=== PATIENT | female | born 1930 | race Caucasian/White ===

== ENCOUNTER → 2016-12-06 | Outpatient (CLI) | payer OTHER | LOC: BHLMT 14:00 | PROVIDERS: ATTEND Internal Medicine Interventional Cardiology | DX: I48.91 Unspecified atrial fibrillation (principal); I10 Essential (primary) hypertension; I42.9 Cardiomyopathy, unspecified | CPT/HCPCS: 93306-PO ==

== ENCOUNTER → 2017-12-12 | Outpatient (CLI) | payer OTHER | LOC: BHLMT 13:15 | PROVIDERS: ATTEND Internal Medicine Interventional Cardiology | DX: I48.91 Unspecified atrial fibrillation (principal) | CPT/HCPCS: 93306-PO ==

== ENCOUNTER → 2018-10-16 | Outpatient (CLI) | payer OTHER | LOC: BHLMT 14:00 | PROVIDERS: ATTEND Internal Medicine Cardiovascular Disease | DX: I48.91 Unspecified atrial fibrillation (principal); I50.9 Heart failure, unspecified | CPT/HCPCS: 93306-PO ==

== ENCOUNTER 2018-11-10 08:04 | Day surgery (SDC) | payer OTHER ==
[2018-11-10] MEDS ORDERED: diphenhydrAMINE 25 MG CAP PO ONE ×2 (08:06→08:19)
[2018-11-10] MEDS ORDERED: FAMOTIDINE 20 MG TAB PO ONE (08:06)
[2018-11-10] MEDS ORDERED: DIAZEPAM 5 MG TAB PO ONE (08:06)
[2018-11-10] MEDS ORDERED: NS 1,000 ML IV ONE (08:06)
[2018-11-10] MEDS ORDERED: ASPIRIN EC 325 MG TAB PO ONE ×2 (08:06→08:20)
[2018-11-10] MEDS ORDERED: FAMOTIDINE 20 MG TAB ONE (08:19)
[2018-11-10] MEDS ORDERED: DIAZEPAM 5 MG TAB ONE (08:20)
[2018-11-10 08:40] LABS: PLATELET COUNT 225 10^3/uL (150-400)
[2018-11-10 08:50] LABS: INR 1.3 (0.83-1.16); PROTIME(PATIENT) 16.4 SEC (12.0-15.0)
[2018-11-10] MEDS ORDERED: LIDOCAINE 1% 300 MG/30 ML SDV ONE (08:58)
[2018-11-10] MEDS ORDERED: MIDAZOLAM 2 MG/2 ML VIAL ONE ×3 (08:59→11:06)
[2018-11-10] MEDS ORDERED: IOHEXOL 350mgI/ML (OMNIPAQUE) 150 ML BTL IV ONE (08:59)
[2018-11-10] MEDS ORDERED: fentaNYL 100 MCG/2 ML INJ ONE ×2 (08:59→10:46)
--- NOTE | 2018-11-10 09:00 | CPEKG ---
Test Reason : OPEN Blood Pressure : / mmHG Vent. Rate : 101 BPM Atrial Rate : 101 BPM P-R Int : 165 ms QRS Dur : 173 ms QT Int : 413 ms P-R-T Axes : 094 -80 093 degrees QTc Int : 536 ms A sensed Ventricular-paced rhythm Confirmed by Yash Cabrera ([id number]) on 11/10/2018 9:00:15 AM Referred By: Fredi Lomeli Confirmed By:Yash Cabrera
--- NOTE | 2018-11-10 10:26 | PDHPUP ---
History & Physical Update H&P update statement: This history and physical update is based on an assessment of the patient which was completed after admission or registration (within 24 hours), but prior to the surgery/procedure. H&P update: H&P reviewed & patient examined, no change in patient's condition since H&P completed
--- NOTE | 2018-11-10 10:27 | PDPROPOC ---
Sedation Plan of Care Sedation Plan of Care: vital signs stable, mental status noted, patient educated of risks, benefits, alternatives, patient can tolerate sedation ASA Classification: ASA 2 Planned drugs: fentanyl, midazolam Mallampati Score: Class 2 Mallampati Reference Image: Patient passed 3-3-2 rule?: Yes
[2018-11-10] MEDS ORDERED: ONDANSETRON 4 MG/2 ML VIAL IVP PRN (11:21)
[2018-11-10] MEDS ORDERED: NITROGLYCERIN 0.4 MG BTL SL PRN (11:21)
[2018-11-10] MEDS ORDERED: ATROPINE SULFATE 1 MG/10 ML SYR IVP PRN (11:21)
--- NOTE | 2018-11-10 11:33 | PDDXCAT ---
Diagnostic Cath Note - . Date: 11/10/18 Installation Manager: Yani Indication: other ([place] [employer] functional Class 3 congestive heart failure, newly developed cardiomyopathy with an ejection fraction below 20 %.) - Procedure Access: right groin Procedure: left heart catheterization, coronary angiography, left ventriculogram , right heart catheterization - Materials Left Heart Cath size: 6F Left Heart Cath materials: JL4.0, JR4.0, pigtail Right Heart Cath size: 7F Right Heart Cath materials: PWP catheter - Findings-Left Heart Catheterization LM: Large caliber vessel. Appropriate bifurcation into the LAD and circumflex. Calcification noted prior to injection of contrast dye. No obstructive lesions. LAD: Large caliber transapical vessel. 2 diagonal branches identified. In the proximal segment there is a long tubular stenosis of up to 30%. LCX: Large caliber vessel. There are 2 obtuse marginal branches identified. The septum obtuse marginal branch is a large caliber multi branching vessel. Luminal irregularities with no obstructive lesions are noted. RCA: Moderate caliber vessel. This is a dominant vessel with a PDA identified. Minimal luminal irregularities with no obstructive lesions. EDP: 10 mmHg. LVEF: 20%. Global hypokinesis. Wall motion: Global hypokinesis. - Findings-Right Heart Catheterization RA: 5 mmHg. RV: 32/4/7 mmHg. PA: 33/13/20 mmHg. PAOP: 10 mmHg. AO: 83/39/54 mmHg. CO: 3.93 liters/minute. CI: 2.32 liters/minute per meter squared. Complications: None Estimated blood loss: <50ml Closure method: Angioseal Assessment: 1. Minimal nonobstructive CAD. 2. Severe cardiomyopathy nonischemic in nature possibly pacing mediated. 3. Well compensated hemodynamics noted on right heart catheterization. Plan: Patient will be considered for upgrade of her current device to a biventricular device. Intervention: None.
== END 2018-11-10 15:57 | disposition home or self-care (01) ==
LOC: FCATH 08:04
PROVIDERS: ATTEND Internal Medicine Cardiovascular Disease
DX: I42.0 Dilated cardiomyopathy (principal); I50.22 Chronic systolic (congestive) heart failure; I34.0 Nonrheumatic mitral (valve) insufficiency; I25.10 Atherosclerotic heart disease of native coronary artery without angina pectoris; I48.0 Paroxysmal atrial fibrillation; I11.0 Hypertensive heart disease with heart failure; E78.5 Hyperlipidemia, unspecified; I44.2 Atrioventricular block, complete; K21.9 Gastro-esophageal reflux disease without esophagitis; Z79.01 Long term (current) use of anticoagulants; Z85.3 Personal history of malignant neoplasm of breast; Z82.49 Family history of ischemic heart disease and other diseases of the circulatory system; Z95.0 Presence of cardiac pacemaker; Z88.0 Allergy status to penicillin; Z88.2 Allergy status to sulfonamides
CPT/HCPCS: C1760; J1644; J2250; J3010; Q9967

== ENCOUNTER 2018-11-26 08:36 | Observation (INO) | payer OTHER ==
[2018-11-26] MEDS ORDERED: diphenhydrAMINE 25 MG CAP PO ONE (08:38)
[2018-11-26] MEDS ORDERED: ceFAZolin 2 GM/DEXTROSE 100 ML IV ONE (08:38)
[2018-11-26] MEDS ORDERED: NS 1,000 ML IV ONE (08:38)
[2018-11-26] MEDS ORDERED: DIAZEPAM 5 MG TAB PO ONE (08:38)
[2018-11-26] MEDS ORDERED: BACITRACIN IRRIGATION/NS 50,000 UNITS/1,000 ML BTL IRR ONE (08:38)
[2018-11-26 09:23] LABS: PLATELET COUNT 185 10^3/uL (150-400)
[2018-11-26] MEDS ORDERED: LIDOCAINE 1% 300 MG/30 ML SDV ONE (09:29)
[2018-11-26] MEDS ORDERED: MIDAZOLAM 2 MG/2 ML VIAL ONE (09:29)
[2018-11-26] MEDS ORDERED: BUPIVACAINE 0.5% 30 ML SDV ONE (09:29)
[2018-11-26] MEDS ORDERED: fentaNYL 100 MCG/2 ML INJ ONE (09:29)
[2018-11-26] MEDS ORDERED: LIDO/EPI 1% **for epidural** 30 ML SDV ONE (09:29)
[2018-11-26] MEDS ORDERED: IOPAMIDOL (ISOVUE-300) 100 ML BTL ONE ×2 (09:30→11:08)
[2018-11-26 09:35] LABS: INR 1.26 (0.83-1.16)
--- NOTE | 2018-11-26 09:51 | PDPROPOC ---
Sedation Plan of Care Sedation Plan of Care: vital signs stable, mental status noted, patient educated of risks, benefits, alternatives, patient can tolerate sedation ASA Classification: ASA 2 Planned drugs: fentanyl, midazolam Mallampati Score: Class 1 Mallampati Reference Image: Patient passed 3-3-2 rule?: Yes
[2018-11-26] MEDS ORDERED: TROLAMINE SALICYLATE 85 GM CRTUBE TP PRN (12:07)
[2018-11-26] MEDS ORDERED: SODIUM CL NASAL 45 ML BTL NS PRN (12:07)
--- NOTE | 2018-11-26 20:49 | CPIP ---
[f rep st] INVASIVE CARDIAC PROCEDURE DATE OF PROCEDURE: 11/26/2018 INDICATIONS: The patient is an 88-year-old female who has a history of complete heart block and prev ious dual-chamber pacemaker implantation in 2006. Recently, she has developed symptoms of congestive heart failure associated with a decline in her ejection fraction down to 20%. After complete workup , no clear-cut identity or etiology was identified. As a result, the patient was referred for an upg rade of her current device to a biventricular pacemaker. Discussions were had with the patient prior to the procedure regarding whether or not to implant a defibrillator and the patient declined defibr illator implant. PROCEDURE: Upgrade of an existing dual-chamber pacemaker to a biventricular pacemaker. TECHNIQUE: Following informed consent, following the administration of prophylactic antibiotics and in the fasting state, the patient was brought to the cardiac catheterization laboratory. Left chest was prepped and draped in usual sterile fashion. A venogram was performed, identifying a widely grande nt axillary subclavian system. 2% lidocaine was infiltrated in the skin below the left clavicle. #1 0 blade was used to make a 4 cm incision. Blunt dissection was used to open the pacemaker pocket. T he existing pacemaker was then removed from the pocket. The leads were carefully dissected from the surrounding scar tissue using electrocautery. All bleeders were cauterized carefully. An antibiotic -soaked sponge was then placed in the pocket. Using modified Seldinger technique, access was gained to the axillary vein at the level of the 1st rib. This allowed us to place a 0.035 wire into the sup erior vena cava. The enavu guide was then passed over this wire and positioned deep within the right atrium. The dilator and wire were then removed. The guide was then positioned near the coron gina sinus ostium and an angled glide was passed under fluoroscopy into the coronary sinus, which allo wed us to seat the guide within the coronary sinus. At this point, a balloon-tipped catheter was arias trupti through the guide. This allowed us to perform a hand injection within the coronary sinus and ileana ntify a nice lateral vein. At this point, a Mailman wire was passed into this lateral vein. This al lowed us to seat the balloon-tipped catheter deep within the lateral vein and performed another venog esperanza, which identified an inferior branch suitable for placement of the coronary sinus lead. The Mail man wire was then advanced in this vein and the balloon-tipped catheter was removed. At this point, the lead was brought to the field and over this wire was advanced deep within this inferior vein. Th e lead was tested with excellent capture and sensing. The sheath was then cut away from this lead, w hich was then secured to the pacemaker pocket floor using 3 individual 0 Ethibond sutures. At this p oint, the antibiotic-soaked sponge was removed from the pocket. The pocket was irrigated with antibi otic-containing solution. While we were pacing on the newly placed coronary sinus lead, the patient' s existing pacemaker was disconnected from the existing wires. The new pacemaker was brought to the field and both the atrial and ventricular leads were identified by serial number and affixed to the h eader accordingly. The newly implanted coronary sinus lead was then affixed to the header according to otolaryngology surgeon guidelines. This device and the redundant portions of all leads were then placed in the pocket. The pocket was then closed in 3 layers initially using 2 layers of interrupted suture wi th 2-0 and 3-0 Vicryl and finally 3-0 Stratafix for the skin. Steri-Strips and a dry dressing were a pplied. COMPLICATIONS: None DEVICE INFORMATION: 1. The newly implanted device is an Pugh Quadra Allure MPRF reference number [id number], serial number [id number]. The newly placed lead is a [employer] Quartet [id number] 86 cm lead, serial number [id number]. 2. The existing atrial lead and ventricular lead were implanted September 06, 2007. The atrial lead i s a [employer] Tendril [id number], 46 cm lead, serial number [id number]. The right ventricular finn d is a [employer] Tendril [id number], 52 cm lead, serial number [id number]. The atrium capture wa s 0.5 V,0.4 msec with sensed P wave 1.9 mV and lead impedance of 440 ohms. In the right ventricle, l ead impedance was 510 ohms, capture was 1.5 at 0.4 msec. Sensing was not performed given the fact th e patient is pacemaker dependent. In the coronary sinus lead, capture was 0.5 V at 0.4 msec at M3 to P4. DISPOSITION: The patient will be admitted to the hospital. She will be monitored overnight, and areli al that she will be discharged home tomorrow. /[id number]/MODL
[2018-11-26] MEDS ORDERED: LATANOPROST 0.005% 2.5 ML OPHT DROPS EACHEYE SCH (21:00)
[2018-11-26] MEDS ORDERED: GABAPENTIN 300 MG CAP PO SCH (21:00)
[2018-11-26] MEDS: ACETAMINOPHEN 500 MG TAB PO PRN (21:05)
[2018-11-26] MEDS: PRESERVISION AREDS2 FORMULA EYE VIT 1 EACH PO SCH (21:05)
[2018-11-27 04:30] LABS: PLATELET COUNT 154 10^3/uL (150-400)
[2018-11-27] MEDS: ACETAMINOPHEN 500 MG TAB PO PRN (06:08)
[2018-11-27 07:48] VITALS: BP 124/72
[2018-11-27] MEDS: PRESERVISION AREDS2 FORMULA EYE VIT 1 EACH PO SCH (08:45)
[2018-11-27] MEDS: PSYLLIUM METAMUCIL 1 PKT PO SCH ×2 (08:45→08:57)
[2018-11-27] MEDS ORDERED: CALCIUM CARB W/VIT D 500 MG TAB PO SCH (09:00)
[2018-11-27] MEDS ORDERED: ASPIRIN 81 MG CHEWABLE TAB PO SCH (09:00)
[2018-11-27] MEDS ORDERED: LOSARTAN POTASSIUM 50 MG TAB PO SCH (09:00)
[2018-11-27] MEDS ORDERED: CETIRIZINE 10 MG TAB PO SCH (09:00)
[2018-11-27] MEDS ORDERED: MULTIVITAMINS 1 EACH TAB PO SCH (09:00)
[2018-11-27] MEDS ORDERED: PANTOPRAZOLE SODIUM 40 MG TAB PO SCH (09:00)
--- NOTE | 2018-11-27 10:10 | ASMTLACE ---
LACE Length of stay for Answers: Less than 1 day current admission Acuity / Level of Answers: No Care: Did the patient have an inpatient admission? Comorbidities - select Answers: Other Notes: HTN; AFlutter all that apply # of Emergency department Answers: 0 visits in the last 6 months Score: 1 Date Signed: 11/27/2018 10:10 AM Electronically Signed By:Ligia Senior RN
--- NOTE | 2018-11-27 10:13 | ASDISCHSUM ---
Discharge Information Plan Status:Home with No Needs Medically Cleared to Leave:11/26/2018 Discharge Date:11/26/2018 CM D/C Disposition:Home, Routine, Self-Care ADT D/C Disposition:Home, Routine, Self-Care Projected Discharge Date:11/26/2018 Transportation at D/C: Discharge Delay Reason: Follow-Up Date:11/26/2018 Discharge Slot: Final Diagnosis: Placement Information Patient Contact Information Contact Name:ALAN Relationship:Daughter Address: City:[place] Phone: State/[facility] Code:[place] Email: Financial Information Financial Class:Medicare Primary Plan Desc:MEDICARE OUTPATIENT Primary Plan Number:[id number] Secondary Plan Desc:[facility] Secondary Plan Number:[id number] Assessment Information LACE LACE Length of stay for Answers: Less than 1 day current admission Acuity / Level of Answers: No Care: Did the patient have an inpatient admission? Comorbidities - select Answers: Other Notes: HTN; AFlutter all that apply # of Emergency department Answers: 0 visits in the last 6 months Score: 1 Date Signed: 11/27/2018 10:10 AM Electronically Signed By:Liiga Senior RN Intervention Information
[2018-11-29] MEDS ORDERED: ESTRADIOL 42.5 GM CRTUBE VG SCH (08:00)
--- NOTE | 2018-12-02 15:12 | CPEKG ---
Test Reason : OPEN Blood Pressure : / mmHG Vent. Rate : 093 BPM Atrial Rate : 092 BPM P-R Int : 175 ms QRS Dur : 174 ms QT Int : 432 ms P-R-T Axes : 060 -77 092 degrees QTc Int : 538 ms Atrial-sensed ventricular-paced rhythm Confirmed by Ramiro Agustin ([id number]) on 12/02/2018 3:11:47 PM Referred By: Fredi Lomeli Confirmed By:Ramiro Agustin
--- NOTE | 2018-12-02 16:37 | CPEKG ---
Test Reason : OPEN Blood Pressure : / mmHG Vent. Rate : 079 BPM Atrial Rate : 079 BPM P-R Int : 155 ms QRS Dur : 134 ms QT Int : 398 ms P-R-T Axes : 113 -71 -55 degrees QTc Int : 457 ms Atrial-sensed ventricular-paced rhythm Confirmed by Ramiro Agustin ([id number]) on 12/02/2018 4:36:31 PM Referred By: Fredi Lomeli Confirmed By:Ramiro Agustin
--- NOTE | 2018-12-02 19:05 | GDS ---
[f rep st] DISCHARGE SUMMARY DISCHARGE DIAGNOSES: 1. 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 2. History of nonischemic cardiomyopathy. 3. History of paroxysmal atrial flutter. 4. History of diastolic dysfunction. 5. History of hypertension. 6. History of complete heart block status post permanent pacemaker in 2006. PROCEDURES: 1. 11/26/2018: Implantation of an Pugh Quadra Allure BiV pacemaker with addition of a [employer] Quartet lead. 2. Serial chest x-rays. BRIEF HISTORY: Please see dictated H and P from our office for complete details. In brief, the patie nt is an 88-year-old female who has a history of a nonischemic cardiomyopathy 1st diagnosed in 1998 w ith subsequent normalization of ejection fraction, new decrement in EF to 20%, possibly related to RV pacing, complete heart block status post pacer in 2006, paroxysmal atrial flutter on anticoagulation , hypertension, who was admitted for upgrade to BiV pacemaker due to this new drop in her ejection fr action. Her procedure was done on 11/26/2018, and there were no complications postprocedurally. She i s being discharged on her home medications. Arm precautions were reviewed. PHYSICAL EXAMINATION: On day of discharge: VITAL SIGNS: Blood pressure 124/72, heart rate 77, respirations 24, O2 saturation 96% on room air, te mp of 97.2. GENERAL: She is a pleasant, elderly female in no apparent distress. HEENT: Normocephalic, atraumatic. Eyes are without scleral icterus. HEART: Regular rate and rhythm. CHEST: Left pectoral r egion without significant ecchymosis or swelling. LABORATORY DATA: CBC with WBC 6.28, hemoglobin 12, hematocrit 35.5, platelet count 154. BMP with sod ium 138, potassium 4.4, chloride 109, CO2 23, BUN 17, creatinine 0.7, glucose 86. RESULTS PENDING: None. DIET: Per previous. ACTIVITY: Left arm precautions were reviewed at length. DISCHARGE INSTRUCTIONS: 1. Left arm precautions. 2. Follow up with device clinic as scheduled. 3. Follow up with Dr. Lomeli as scheduled. /[id number]/MODL
--- NOTE | 2018-12-03 11:12 | CPEKG ---
Test Reason : OPEN Blood Pressure : / mmHG Vent. Rate : 079 BPM Atrial Rate : 077 BPM P-R Int : 173 ms QRS Dur : 129 ms QT Int : 418 ms P-R-T Axes : 007 -69 -31 degrees QTc Int : 480 ms Atrial-sensed ventricular-paced rhythm Confirmed by Ramiro Agustin ([id number]) on 12/03/2018 11:12:18 AM Referred By: Fredi Lomeli Confirmed By:Ramiro Agustin
== END 2018-11-27 12:15 | disposition home or self-care (01) ==
LOC: FCATH 08:36 → F3E 12:01 → F2W 13:32
PROVIDERS: ADMIT Internal Medicine Cardiovascular Disease; ATTEND Internal Medicine Cardiovascular Disease
DX: I44.2 Atrioventricular block, complete (principal); Z95.0 Presence of cardiac pacemaker; I42.0 Dilated cardiomyopathy; I48.0 Paroxysmal atrial fibrillation; I11.9 Hypertensive heart disease without heart failure; I50.9 Heart failure, unspecified; Z85.3 Personal history of malignant neoplasm of breast; Z79.01 Long term (current) use of anticoagulants
CPT/HCPCS: 33225; 33229; 71045; 71046; 97161; 97165; C1900; C2621; J0690; J1644; J2250; J3010; Q9967